=== PATIENT | female | born 1940 | race Two or more races ===

== ENCOUNTER 2023-03-07 16:57 | Emergency (ER) | payer OTHER ==
[~2023-03-07] VITALS: Ht 162.6 cm; Wt 65.8 kg
[2023-03-07 17:11] VITALS: TEMP 98.2
[2023-03-07 19:42] VITALS: BP 134/82; O2SAT 98
== END 2023-03-07 19:43 ==
LOC: ER 17:18
DX: M25.551 Pain in right hip (principal); G30.9 Alzheimer's disease, unspecified; F02.80 Dementia in other diseases classified elsewhere, unspecified severity, without behavioral disturbance, psychotic disturbance, mood disturbance, and anxiety; I10 Essential (primary) hypertension; E78.5 Hyperlipidemia, unspecified; Z88.2 Allergy status to sulfonamides; Z88.5 Allergy status to narcotic agent; W01.0XXA Fall on same level from slipping, tripping and stumbling without subsequent striking against object, initial encounter; Y93.89 Activity, other specified; Y92.89 Other specified places as the place of occurrence of the external cause; Y99.8 Other external cause status
CPT/HCPCS: 70450-TC; 72125-TC; 73080-TC; 73521